=== PATIENT | female | born 1995 | race Two or more races ===

== ENCOUNTER 2018-10-06 17:34 | Emergency (ER) | payer SELFPAY ==
[~2018-10-06] VITALS: Ht 170.2 cm; Wt 59.4 kg
[2018-10-06 18:08] VITALS: BP 122/72
--- NOTE | 2018-10-06 19:00 | NUR ---
Patient discharged to home in stable condition. Written and verbal after care instructions given. Patient verbalizes understanding of instruction.
== END 2018-10-06 19:02 | disposition home or self-care (01) ==
LOC: ER 17:47
DX: N92.6 Irregular menstruation, unspecified (principal)
CPT/HCPCS: 84703-TC